=== PATIENT | male | born 1980 | race Two or more races ===

== ENCOUNTER 2018-03-10 15:05 | Emergency (ER) | payer OTHER ==
[~2018-03-10] VITALS: Ht 175.3 cm; Wt 88.0 kg
[2018-03-10 15:11] VITALS: BP 132/84
== END 2018-03-10 16:29 | disposition home or self-care (01) ==
LOC: ED 15:39
DX: S90.02XA Contusion of left ankle, initial encounter (principal); S90.32XA Contusion of left foot, initial encounter; V29.69XA Unspecified motorcycle rider injured in collision with other motor vehicles in traffic accident, initial encounter; Y93.89 Activity, other specified; Y99.8 Other external cause status; Y92.89 Other specified places as the place of occurrence of the external cause
CPT/HCPCS: 29515; 99284

== ENCOUNTER 2020-01-29 20:16 | Emergency (ER) | payer SELFPAY ==
[~2020-01-29] VITALS: Ht 172.7 cm; Wt 97.8 kg
[2020-01-29] MEDS ORDERED: LIDOCAINE-MPF 1%, 5ML ONE ×2 (20:43→20:50)
[2020-01-29] MEDS ORDERED: LIDOCAINE 1%, 10ML INFIL ONE (21:00)
[2020-01-29] MEDS ORDERED: NEOSPORIN OINT. PKT 1 PACKET ONE (21:36)
[2020-01-29 22:05] VITALS: BP 121/71
== END 2020-01-29 22:08 | disposition home or self-care (01) ==
LOC: ED 20:46
DX: S61.212A Laceration without foreign body of right middle finger without damage to nail, initial encounter (principal); X58.XXXA Exposure to other specified factors, initial encounter; Y93.89 Activity, other specified; Y92.098 Other place in other non-institutional residence as the place of occurrence of the external cause; Y99.8 Other external cause status
CPT/HCPCS: 12041; 99284